=== PATIENT | male | born 2000 | race Hispanic/Latino ===

== ENCOUNTER 2020-02-20 00:25 | Emergency (ER) | payer OTHER ==
[2020-02-20 01:29] LABS: Absolute Lymphocytes (CBC) 1.3 K/uL (0.7-4.9); Basophils % 0.3 % (0-1.3); Hematocrit 44.2 % (39.6-49.0); Lymphocytes % 27.1 % (15.3-44.8); MPV 8.5 fL (7.6-11.3); RBC Red Blood Cell Count 5.19 M/uL (4.33-5.43)
[2020-02-20] MEDS ORDERED: ASPIRIN 81 MG CHEWABLE TABLET ONE (01:41)
[2020-02-20] MEDS ORDERED: dexAMETHasone 10 MG/ML VIAL ONE (01:41)
[2020-02-20] MEDS ORDERED: NA CHLORIDE 0.9% 1,000 ML ONE (01:42)
[2020-02-20] MEDS ORDERED: CEFTRIAXONE/SWI 1gm 1 GM/10 ML SYR ONE (01:42)
[2020-02-20] MEDS ORDERED: NA CHLORIDE 0.9% 250 ML ONE (01:42)
[2020-02-20] MEDS ORDERED: FAMOTIDINE 20 MG/2 ML VIAL IV ONE (01:42)
[2020-02-20] MEDS ORDERED: AZITHROMYCIN 500 MG INJ IVPB ONE (01:42)
[2020-02-20 01:49] LABS: ALT/SGPT 31 U/L (12-78); AST/SGOT 20 U/L (15-37); Albumin 4.3 g/dL (3.4-5.0); Alkaline Phosphatase 77 U/L (45-117); BUN Blood Urea Nitrogen 10 mg/dL (7-18); Bicarbonate 27 mmol/L (21-32); Bilirubin Direct 0.1 mg/dL (0-0.2); Bilirubin Total 0.5 mg/dL (0.2-1.0); Glucose Level 117 mg/dL (74-106); Magnesium 2.3 mg/dL (1.8-2.4); Potassium 3.4 mmol/L (3.5-5.1); Protein, Total 8.2 g/dL (6.4-8.2); Sodium Level 141 mmol/L (136-145); Troponin (Emerg Dept Use Only) < 0.02 ng/mL (0.0-0.045)
[2020-02-20 02:01] LABS: NT PRO-BNP < 5 pg/mL (<125)
--- NOTE | 2020-02-20 02:06 | EDPHYS ---
Physician Documentation [facility] Name: Armani Alan Age: 20 yrs Sex: Male : 2000 Arrival Date: 02/20/2020 Time: 00:29 Bed 8 Private MD: ED Physician Favian Vance HPI: 02/19 00:52 This 20 yrs old Male presents to ER via Ambulatory with complaints of COVID+, katelynn CHEST PAIN. 00:52 The patient or guardian reports chest pain that is located primarily in the anterior [facility] chest wall. The patient or guardian reports airway noise, cough, difficulty breathing, flu symptoms, arthralgias, low-grade fever, myalgias. Onset: The symptoms/episode began/occurred 2 day(s) ago. Modifying factors: The symptoms are alleviated by nothing. the symptoms are aggravated by activity. The pain does not radiate. The patient or guardian reports hoarse voice. Severity of symptoms: At their worst the symptoms were mild, in the emergency department the symptoms are unchanged. Associated signs and symptoms: Pertinent positives: chest pain, rhinorrhea, sore throat. Modifying factors: The symptoms are alleviated by nothing, the symptoms are aggravated by exertion. Associated signs and symptoms: Pertinent positives: cough, nausea, shortness of breath. Historical: - Allergies: 00:44 No Known Allergies; jb4 - Home Meds: 00:44 None [Active]; jb4 - PMHx: 00:44 None; jb4 - PSHx: 00:44 None; jb4 - Immunization history:: Adult Immunizations up to date. - Social history:: Smoking status: Patient denies any tobacco usage or history of. Patient uses alcohol, occasionally. Patient/guardian denies using street drugs. - Family history:: not pertinent. ROS: 00:52 Constitutional: Negative for fever, chills, and weight loss, Eyes: Negative for injury, katelynn pain, redness, and discharge, ENT: Negative for injury, pain, and discharge, Neck: Negative for injury, pain, and swelling, Abdomen/GI: Negative for abdominal pain, nausea, vomiting, diarrhea, and constipation, Back: Negative for injury and pain, : Negative for injury, bleeding, discharge, and swelling, MS/Extremity: Negative for injury and deformity, Skin: Negative for injury, rash, and discoloration, Neuro: Negative for headache, weakness, numbness, tingling, and seizure, Psych: Negative for depression, anxiety, suicide ideation, homicidal ideation, and hallucinations, Allergy/Immunology: Negative for hives, rash, and allergies, Endocrine: Negative for neck swelling, polydipsia, polyuria, polyphagia, and marked weight changes, Hematologic/Lymphatic: Negative for swollen nodes, abnormal bleeding, and unusual bruising. 00:52 Cardiovascular: Positive for chest pain, palpitations. Exam: 00:52 Constitutional: This is a well developed, well nourished patient who is awake, alert, katelynn and in no acute distress. Head/Face: Normocephalic, atraumatic. Eyes: Pupils equal round and reactive to light, extra-ocular motions intact. Lids and lashes normal. Conjunctiva and sclera are non-icteric and not injected. Cornea within normal limits. Periorbital areas with no swelling, redness, or edema. ENT: Nares patent. No nasal discharge, no septal abnormalities noted. Tympanic membranes are normal and external auditory canals are clear. Oropharynx with no redness, swelling, or masses, exudates, or evidence of obstruction, uvula midline. Mucous membranes moist. Neck: Trachea midline, no thyromegaly or masses palpated, and no cervical lymphadenopathy. Supple, full range of motion without nuchal rigidity, or vertebral point tenderness. No Meningismus. Chest/axilla: Normal chest wall appearance and motion. Nontender with no deformity. No lesions are appreciated. Cardiovascular: Regular rate and rhythm with a normal S1 and S2. No gallops, murmurs, or rubs. Normal PMI, no JVD. No pulse deficits. Respiratory: Lungs have equal breath sounds bilaterally, clear to auscultation and percussion. No rales, rhonchi or wheezes noted. No increased work of breathing, no retractions or nasal flaring. Abdomen/GI: Soft, non-tender, with normal bowel sounds. No distension or tympany. No guarding or rebound. No evidence of tenderness throughout. Back: No spinal tenderness. No costovertebral tenderness. Full range of motion. Male : Normal genitalia with no discharge or lesions. Skin: Warm, dry with normal turgor. Normal color with no rashes, no lesions, and no evidence of cellulitis. MS/ Extremity: Pulses equal, no cyanosis. Neurovascular intact. Full, normal range of motion. Neuro: Awake and alert, GCS 15, oriented to person, place, time, and situation. Cranial nerves II-XII grossly intact. Motor strength 5/5 in all extremities. Sensory grossly intact. Cerebellar exam normal. Normal gait. Psych: Awake, alert, with orientation to person, place and time. Behavior, mood, and affect are within normal limits. 00:52 Musculoskeletal/extremity: DVT Exam: No signs of deep vein thrombosis. no pain, no swelling, no tenderness, negative Homans' sign noted on exam, no appreciated bluish discoloration, no erythema, no increased warmth. 02:14 ECG was reviewed by the Attending Physician. [facility] Vital Signs: 00:41 BP 143 / 74; Pulse 87; Resp 16; Temp 98.0(O); Pulse Ox 100% on R/A; Pain 0/10; jb4 02:00 BP 122 / 73; Pulse 81; Resp 16; Pulse Ox 100% on R/A; jb4 03:06 BP 118 / 76; Pulse 86; Resp 16; Pulse Ox 98% on R/A; jb4 MDM: 00:37 Patient medically screened. [facility] 02:07 Differential diagnosis: obstructed airway, bronchitis, flu, URI, abnormal EKG, coronary katelynn artery disease chest wall pain, congestive heart failure costochondritis. Antibiotic administration: The patient is discharged and will get outpatient antibiotics, Zithromax. HEART Score: History: Slightly Suspicious (0), ECG: Normal (0), Age: < or = 45 years (0), Risk Factors: No Risk Factors Known (0), Troponin: < or = 1 x Normal Limit (0), Total Score = 0. Differential Diagnosis: Bronchitis Influenza Upper Respiratory Infection Pharyngitis Allergic Rhinitis Asthma Exacerbation Viral Syndrome Pneumonia. The patient's deep vein thrombosis risk score was calculated as follows: Total Score: 0. This patient was found to be at low risk for a deep vein thrombosis by using the Well's assessment criteria. The patient's pulmonary embolism risk score was calculated as follows: Total Score: 0-2 points. This patient was found to be at low risk for a pulmonary embolism by using the Well's assessment criteria. CORNELIUS Risk Score: TOTAL SCORE = 0. Data reviewed: vital signs, nurses notes, lab test result(s), EKG, radiologic studies, plain films. Data interpreted: monitor and storage bin tender: rate is 87 beats/min, rhythm is regular, Pulse oximetry: on room air is 100 %. Test interpretation: by ED physician or midlevel provider: ECG, plain radiologic studies. Counseling: I had a detailed discussion with the patient and/or guardian regarding: the historical points, exam findings, and any diagnostic results supporting the discharge/admit diagnosis, lab results, radiology results, the need for outpatient follow up, for definitive care, a family practitioner, a technical operator. 02/19 00:49 Order name: Basic Metabolic Panel; Complete Time: 02:04 [facility] 02/19 00:49 Order name: CBC with Diff; Complete Time: 02: [facility] 02/19 00:49 Order name: LFT's; Complete Time: 02: [facility] 02/19 00:49 Order name: Magnesium; Complete Time: 02:05 [facility] 02/19 00:49 Order name: NT PRO-BNP; Complete Time: 02:05 [facility] 02/19 00:49 Order name: Troponin (emerg Dept Use Only); Complete Time: 02:05 [facility] 02/19 00:49 Order name: XRAY Chest (1 view) 02/19 00:49 Order name: D-Dimer; Complete Time: 02:05 [facility] 02/19 00:49 Order name: Blood Culture Adult (2) 02/19 00:49 Order name: EKG; Complete Time: 00:50 [facility] 02/19 00:49 Order name: Cardiac monitoring; Complete Time: 01:57 [facility] 02/19 00:49 Order name: EKG - Nurse/Tech; Complete Time: 02:15 [facility] 02/19 00:49 Order name: IV Saline Lock; Complete Time: : [facility] 02/19 00:49 Order name: Labs collected and sent; Complete Time: : [facility] 02/19 00:49 Order name: O2 Per Protocol; Complete Time: : [facility] 02/19 00:49 Order name: O2 Sat Monitoring; Complete Time: : [facility] EC:14 Rate is 82 beats/min. Rhythm is regular. QRS [place] is Normal. ID interval is normal. QRS katelynn interval is normal. QT interval is normal. No Q waves. T waves are Normal. No ST changes noted. Clinical impression: NSR w/ Non-specific ST/T Changes and No evidence of ischemia. Interpreted by me. Reviewed by me. Administered Medications: : Drug: NS 0.9% 1000 ml Route: IV; Rate: 1 bolus; Site: right antecubital; jb4 02:40 Follow up: Response: No adverse reaction; IV Status: Completed infusion jb4 01:40 Drug: Aspirin 162 mg Route: PO; jb4 02:00 Follow up: Response: No adverse reaction jb4 :41 Drug: Decadron - Dexamethasone 10 mg Route: IVP; Site: right antecubital; jb4 02:00 Follow up: Response: No adverse reaction jb4 01:41 Drug: Pepcid 20 mg Route: IVP; Site: right antecubital; jb4 02:00 Follow up: Response: No adverse reaction jb4 :42 Drug: Rocephin 1 grams Route: IV; Rate: per protocol; Site: right antecubital; jb4 01:44 Follow up: Response: No adverse reaction; IV Status: Completed infusion jb4 :44 Drug: Zithromax 500 mg Route: IVPB; Infused Over: 1 hrs; Site: right antecubital; jb4 02:44 Follow up: Response: No adverse reaction; IV Status: Completed infusion jb4 02:20 Drug: Potassium Effervescent Tablet 25 mEq Route: PO; jb4 02:50 Follow up: Response: No adverse reaction 4 Disposition: 02/20/20 02:05 Discharged to Home. Impression: Acute upper respiratory infection, unspecified - covid 19 positive, Fever, unspecified, Hypokalemia. - Condition is Stable. - Discharge Instructions: Potassium Content of Foods, Fever, Adult, Upper Respiratory Infection, Adult, Cool Mist Vaporizer, Upper Respiratory Infection, Adult, [id number], Aspirin and Your Heart, Cough, Adult, Hypokalemia, COVID-19. - Prescriptions for dexamethasone 2 mg Oral tablet - take 1 tablet by ORAL route 3 times per day; 21 tablet. Pepcid 20 mg Oral Tablet - take 1 tablet by ORAL route every 12 hours for 10 days; 20 tablet. Albuterol Sulfate 90 mcg/actuation - inhale 1-2 puff by INHALATION route every 4-6 hours; 1 Inhaler. Zithromax 500 mg Oral Tablet - take 1 tablet by ORAL route once daily for 4 days; 4 tablet. - Medication Reconciliation Form, Thank You Letter, Antibiotic Education, Prescription Opioid Use form. - Follow up: Private Physician; When: 2 - 3 days; Reason: Recheck today's complaints, Continuance of care, Re-evaluation by your physician. Follow up: Ed Woods; When: 2 - 3 days; Reason: Recheck today's complaints, Re-evaluation by your physician. - Problem is new. - Symptoms have improved. Signatures: Dispatcher [employer] EDVT Favian Vance MD MD cha Bryson, James RN RN jb4 Corrections: (The following items were deleted from the chart) 02:06 02:05 02/20/2020 02:05 Discharged to Home. Impression: Acute upper respiratory katelynn infection, unspecified - covid 19 positive; Fever, unspecified. Condition is Stable. Discharge Instructions: Fever, Adult, Upper Respiratory Infection, Adult, Cool Mist Vaporizer, Upper Respiratory Infection, Adult, [id number], Aspirin and Your Heart, Cough, Adult, COVID-19. Prescriptions for dexamethasone 2 mg Oral tablet - take 1 tablet by ORAL route 3 times per day; 21 tablet, Pepcid 20 mg Oral Tablet - take 1 tablet by ORAL route every 12 hours for 10 days; 20 tablet, Albuterol Sulfate 90 mcg/actuation - inhale 1-2 puff by INHALATION route every 4-6 hours; 1 Inhaler, Zithromax 500 mg Oral Tablet - take 1 tablet by ORAL route once daily for 4 days; 4 tablet. and Forms are Medication Reconciliation Form, Thank You Letter, Antibiotic Education, Prescription Opioid Use. Follow up: Private Physician; When: 2 - 3 days; Reason: Recheck today's complaints, Continuance of care, Re-evaluation by your physician. Follow up: Ed Woods; When: 2 - 3 days; Reason: Recheck today's complaints, Re-evaluation by your physician. Problem is new. Symptoms have improved. [facility] 03:10 02:06 02/20/2020 02:05 Discharged to Home. Impression: Acute upper respiratory jb4 infection, unspecified - covid 19 positive; Fever, unspecified; Hypokalemia. Condition is Stable. Discharge Instructions: Fever, Adult, Upper Respiratory Infection, Adult, Cool Mist Vaporizer, Upper Respiratory Infection, Adult, [id number], Aspirin and Your Heart, Cough, Adult, COVID-19. Prescriptions for dexamethasone 2 mg Oral tablet - take 1 tablet by ORAL route 3 times per day; 21 tablet, Pepcid 20 mg Oral Tablet - take 1 tablet by ORAL route every 12 hours for 10 days; 20 tablet, Albuterol Sulfate 90 mcg/actuation - inhale 1-2 puff by INHALATION route every 4-6 hours; 1 Inhaler, Zithromax 500 mg Oral Tablet - take 1 tablet by ORAL route once daily for 4 days; 4 tablet. and Forms are Medication Reconciliation Form, Thank You Letter, Antibiotic Education, Prescription Opioid Use. Follow up: Private Physician; When: 2 - 3 days; Reason: Recheck today's complaints, Continuance of care, Re-evaluation by your physician. Follow up: Ed Woods; When: 2 - 3 days; Reason: Recheck today's complaints, Re-evaluation by your physician. Problem is new. Symptoms have improved. katelynn
--- NOTE | 2020-02-20 02:06 | ER ---
Nurse's Notes [facility] Name: Armani Alan Age: 20 yrs Sex: Male : 2000 Arrival Date: 02/20/2020 Time: 00:29 Bed 8 Private MD: Diagnosis: Acute upper respiratory infection, unspecified-covid 19 positive;Fever, unspecified;Hypokalemia Presentation: 02/19 00:41 Chief complaint: Patient states: I was diagnosed with covid on Sunday, I have chest jb4 pain and SOB tonight and was told to be seen if that started. Coronavirus screen: Client presents with at least one sign or symptom that may indicate coronavirus-19. Standard/surgical mask placed on the client. Provider contacted for isolation considerations. Client reports previous positive COVID test result. Date of collection: February 17, 2020. Ebola Screen: No symptoms or risks identified at this time. Initial Sepsis Screen: Does the patient meet any 2 criteria? No. Patient's initial sepsis screen is negative. Does the patient have a suspected source of infection? No. Patient's initial sepsis screen is negative. Risk Assessment: Do you want to hurt yourself or someone else? Patient reports no desire to harm self or others. Onset of symptoms was February 17, 2020. Transition of care: patient was not received from another setting of care. 00:41 Method Of Arrival: Ambulatory jb4 00:41 Acuity: LOUISE 3 jb4 Historical: - Allergies: 00:44 No Known Allergies; jb4 - Home Meds: 00:44 None [Active]; jb4 - PMHx: 00:44 None; jb4 - PSHx: 00:44 None; jb4 - Immunization history:: Adult Immunizations up to date. - Social history:: Smoking status: Patient denies any tobacco usage or history of. Patient uses alcohol, occasionally. Patient/guardian denies using street drugs. - Family history:: not pertinent. Screenin:44 Abuse screen: Denies threats or abuse. Nutritional screening: No deficits noted. jb4 Tuberculosis screening: No symptoms or risk factors identified. Fall Risk None identified. Assessment: 00:44 General: Appears in no apparent distress. comfortable, Behavior is calm, cooperative. jb4 Pain: Denies pain. Neuro: Level of Consciousness is awake, alert, obeys commands, Oriented to person, place, time, situation. Cardiovascular: Patient's skin is warm and dry. Respiratory: Airway is patent Respiratory effort is even, unlabored, Respiratory pattern is regular, symmetrical. GI: No signs and/or symptoms were reported involving the gastrointestinal system. : No signs and/or symptoms were reported regarding the genitourinary system. EENT: No signs and/or symptoms were reported regarding the EENT system. Derm: Skin is intact, Skin is pink, warm \T\ dry. Musculoskeletal: Circulation, motion, and sensation intact. Range of motion: intact in all extremities. 02:00 Reassessment: Patient appears in no apparent distress at this time. Patient and/or jb4 family updated on plan of care and expected duration. Pain level reassessed. Patient is alert, oriented x 3, equal unlabored respirations, skin warm/dry/pink. D/c pending completion of IV fluids. Patient denies pain at this time. 03:06 Reassessment: Patient appears in no apparent distress at this time. Patient and/or jb4 family updated on plan of care and expected duration. Pain level reassessed. Patient is alert, oriented x 3, equal unlabored respirations, skin warm/dry/pink. Vital Signs: 00:41 BP 143 / 74; Pulse 87; Resp 16; Temp 98.0(O); Pulse Ox 100% on R/A; Pain 0/10; jb4 02:00 BP 122 / 73; Pulse 81; Resp 16; Pulse Ox 100% on R/A; jb4 03:06 BP 118 / 76; Pulse 86; Resp 16; Pulse Ox 98% on R/A; jb4 ED Course: 00:29 Patient arrived in ED. ag3 00:37 Favian Vance MD is Attending Physician. katelynn 00:41 Selvin Groves, RN is Primary Nurse. jb4 00:44 Triage completed. jb4 00:44 Arm band placed on right wrist. jb4 00:44 Patient has correct armband on for positive identification. Bed in low position. Call jb4 light in reach. Side rails up X 1. Pulse ox on. NIBP on. 01:00 No provider procedures requiring assistance completed. Initial lab(s) drawn, by nc, alfredo sent to lab. Inserted saline lock: 20 gauge in right antecubital area, using aseptic technique. Blood collected. 01:35 XRAY Chest (1 view) In Process Unspecified. EDLA 02:05 Ed Woods MD is Referral Physician. [facility] 03:06 IV discontinued, intact, bleeding controlled, No redness/swelling at site. Pressure jb4 dressing applied. Administered Medications: 01:40 Drug: NS 0.9% 1000 ml Route: IV; Rate: 1 bolus; Site: right antecubital; jb4 02:40 Follow up: Response: No adverse reaction; IV Status: Completed infusion jb4 01:40 Drug: Aspirin 162 mg Route: PO; jb4 02:00 Follow up: Response: No adverse reaction jb4 01:41 Drug: Decadron - Dexamethasone 10 mg Route: IVP; Site: right antecubital; jb4 02:00 Follow up: Response: No adverse reaction jb4 01:41 Drug: Pepcid 20 mg Route: IVP; Site: right antecubital; jb4 02:00 Follow up: Response: No adverse reaction jb4 01:42 Drug: Rocephin 1 grams Route: IV; Rate: per protocol; Site: right antecubital; jb4 01:44 Follow up: Response: No adverse reaction; IV Status: Completed infusion jb4 01:44 Drug: Zithromax 500 mg Route: IVPB; Infused Over: 1 hrs; Site: right antecubital; jb4 02:44 Follow up: Response: No adverse reaction; IV Status: Completed infusion jb4 02:20 Drug: Potassium Effervescent Tablet 25 mEq Route: PO; jb4 02:50 Follow up: Response: No adverse reaction jb4 Outcome: 02:05 Discharge ordered by . [facility] 03:06 Discharged to home ambulatory, with family. jb4 03:06 Condition: stable 03:06 Discharge instructions given to patient, Instructed on discharge instructions, follow up and referral plans. medication usage, Demonstrated understanding of instructions, follow-up care, medications, Prescriptions given X 4. 03:10 Patient left the ED. jb4 Signatures: Dispatcher [employer] Favian Brandt MD MD cha Bryson, James, RN RN jb4 Stephanie Ferguson ag3
[2020-02-20] MEDS ORDERED: POTASSIUM 25 MEQ EFFERV TAB ONE (02:26)
[2020-02-20 03:22] VITALS: TEMP 98
[2020-02-20 03:24] VITALS: BP 118/76; O2SAT 98
--- NOTE | 2020-02-20 07:19 | RAD REPORT ---
EXAM DESCRIPTION: Armando Single View02/20/2020 1:35 am CLINICAL HISTORY: Chest pain COMPARISON: none FINDINGS: The lungs appear clear of acute infiltrate. The heart is normal size IMPRESSION: No acute abnormalities displayed
--- NOTE | 2020-02-20 07:20 | EKG ---
Test Date: 2020-02-20 Test Time: 02:11:43 Animal Attendants [employer] Trainers: ELISEO MEASUREMENT RESULTS: Intervals: Rate: 82 AL: 138 QRSD: 94 QT: 392 QTc: 457 [place]: P: 70 AL: 138 QRS: 83 T: 63 INTERPRETIVE STATEMENTS: Normal sinus rhythm with sinus arrhythmia Normal ECG No previous ECG available for comparison Electronically Signed On 02-20-20 07:19:51 CDT by Sonu Justin
== END 2020-02-20 03:10 | disposition home or self-care (01) ==
LOC: ER 00:25
DX: U07.1 COVID-19 (principal); J06.9 Acute upper respiratory infection, unspecified; E87.6 Hypokalemia; R50.9 Fever, unspecified
CPT/HCPCS: 96365; 93005; 87040 ×2; 85025; 80048; 36415; 83735; 85379; 80076; 84484; 83880; 71045; 96375; 99284; J0456; J1100; J0696; J7050; J7030